=== PATIENT | male | born 2000 | race African-American/Black ===

== ENCOUNTER 2021-07-10 02:12 | Emergency (ER) | payer SELFPAY ==
[2021-07-10] MEDS ORDERED: methylPREDNISolone Sod Succ/PF 125 MG/2 ML VIAL ONE (02:28)
== END 2021-07-10 03:13 | disposition home or self-care (01) ==
LOC: MADERS 02:12
DX: J45.901 Unspecified asthma with (acute) exacerbation (principal)
CPT/HCPCS: 96372; J2930; J7620